=== PATIENT | male | born 1960 ===

== ENCOUNTER → 2021-05-06 | Day surgery (SDC) | payer OTHER ==
[~2021-05-06] MED LIST: BAYER THERAPY325 MG PO; COREG CR10 MG PO; CRESTOR10 MG PO; PERCOCET 5-3251 EACH PO; RECTICARE30 GM TOP
== END | disposition home or self-care (01) ==
LOC: ADM 04-29 12:30 → CIR.AMB 05:28
PROVIDERS: ATTEND Surgery
DX: K60.1 Chronic anal fissure (principal)